=== PATIENT | female | born 1955 | race Caucasian/White ===

== ENCOUNTER → 2024-03-04 | Emergency (ER) | payer OTHER ==
[~2024-03-04] VITALS: Ht 160 cm; Wt 72.6 kg
[~2024-03-04] MED LIST: AUG875 PO; HYDR-3917 PO; IBUP-1969 PO
[2024-03-04 11:45] VITALS: BP_SYST 129; PULSE 77; RESP 18; TEMP 98.3; O2SAT 97
[2024-03-04 12:05] LABS: BILIRUBIN,URINE NEGATIVE (NEGATIVE); BLOOD, URINE 1+ (NEGATIVE); CLARITY/URINE CLEAR (CLEAR); COLOR,URINE YELLOW (YELLOW); GLUCOSE,URINE NEGATIVE (NEGATIVE); KETONES,URINE TRACE (NEGATIVE); LEUKOCYTE ESTERASE ,URINE NEGATIVE (NEGATIVE); NITRITE, URINE NEGATIVE (NEGATIVE); PROTEIN URINE NEGATIVE (NEGATIVE); UROBILINOGEN,URINE 0.2 (0.2-1.0)
[2024-03-04 12:24] LABS: BASOPHILS # (AUTO) 0.1 K/uL (0.0-0.2); BASOPHILS % (AUTO) 0.4 % (0.0-2.0); EOSINOPHILS # (AUTO) 0.1 K/uL (0.0-0.4); EOSINOPHILS % (AUTO) 0.8 % (0.0-4.0); HEMATOCRIT 43.1 % (36-48); HEMOGLOBIN 14.2 g/dL (12.0-16.0); LYMPHOCYTES % (AUTO) 13.4 % (20.5-51.5); MEAN CORPUSCULAR HEMOGLOBIN 27 pg (27-31); MEAN CORPUSCULAR HGB CONC 33 % (32-36); MEAN CORPUSCULAR VOLUME 83 fL (79.0-98.0); NEUTROPHILS # (AUTO) 11.7 K/uL (1.8-7.7); NEUTROPHILS % (AUTO) 78.4 % (40.0-70.0); PLATELET COUNT (AUTO) 207 K/uL (130-430); RED BLOOD CELL COUNT(AUTO) 5.19 MIL/uL (4.2-6.2); WHITE BLOOD COUNT (AUTO) 14.9 K/uL (4.8-10.8)
[2024-03-04 12:33] LABS: ALBUMIN 3.9 g/dL (3.4-4.8); BILIRUBIN,DIRECT 0.2 mg/dL (0.0-0.3); CALCIUM 8.9 mg/dL (8.4-11.0); CREATININE 0.78 mg/dL (0.55-1.30); POTASSIUM 4.1 mmol/L (3.5-5.1); TOTAL BILIRUBIN 0.7 mg/dL (0.0-1.0); TOTAL PROTEIN, SERUM 7.8 g/dL (6.4-8.3)
[2024-03-04 12:38] LABS: BACTERIA,URINE None Seen /HPF (None Seen); MUCUS,URINE 1+ /LPF (None Seen); WBC,URINE NONE SEEN /HPF (0-3)
[2024-03-04] MEDS: KETOROLAC TROMETHAMINE 30 MG VIAL IM ONE (13:49)
[2024-03-04 14:15] VITALS: BP_SYST 129; PULSE 77; RESP 18; TEMP 98.3; O2SAT 97
== END | disposition home or self-care (01) ==
LOC: SED 11:08
DX: K57.92 Diverticulitis of intestine, part unspecified, without perforation or abscess without bleeding (principal); R07.89 Other chest pain; Z79.899 Other long term (current) drug therapy
CPT/HCPCS: 99285; 74176; 80076; 80048; 81001; 83880; 83690; 85025; 84484; 36415; 96372; 81000; 81015; J1885